=== PATIENT | female | born 1990 | race African-American/Black ===

== ENCOUNTER 2019-04-28 06:33 | Emergency (ER) | payer MEDICAID ==
[~2019-04-28] VITALS: Ht 175.3 cm; Wt 102.1 kg
--- NOTE | 2019-04-28 06:52 | NUR ---
ED Nurse Note: pt presents to ED c/o chills, RUFF, sore throat and cough x3 days. pt reports that the px is 10/10 and generalized throughout her body. she has had a cough that has made her now have a sore throat. pt states that white mucus comes up when she coughs and that it hurts to swallow. pt reports she has been around someone who is sick but is unsure whether or not they were postive for influenza. triage oral temp is 98.0. pt denies SOB, N/V at this time.
[2019-04-28 06:55] VITALS: BP 122/70
--- NOTE | 2019-04-28 07:00 | NUR ---
HAND-OFF: Report given to JERAD Sanabria.
--- NOTE | 2019-04-28 07:01 | NUR ---
ED Nurse Note: Received report from JERAD Wood. JOSH at bedside at this time.
--- NOTE | 2019-04-28 07:10 | Emergency Room Report ---
History of Present Illness General Chief Complaint: Flu Like Symptoms Source: Patient Present Illness HPI Patient presents with 3 days of upper respiratory symptoms. She has a runny nose, sore throat and a nonproductive cough. She denies wheezing. She has felt muscle and bone aches. Last night she took Motrin. No nausea, vomiting or diarrhea. The pain in her body is rated 10/10 at this time. She denies neck stiffness. She has had chills but no documented fever. Her last period was in January. She had a miscarriage in February. An IUD was placed at that time. She has had spotting. She does not believe she is at this time. She denies any dysuria. No chest pain, palpitations, abdominal pain, shortness of breath, rashes, visual changes, dizziness, headache. Allergies: Coded Allergies: No Known Allergies (Unverified , 04/28/19) Patient History Past Medical History: see triage record Social History: Reports: smoking Social History Narrative not working - with boyfriend Last Menstrual Period: 2 months ago Reviewed Nursing Documentation: PMH: Agreed; PSxH: Agreed Nursing Documentation-PMH Past Medical History: No Stated History Review of Systems All Other Systems: negative except mentioned in HPI Physical Exam Vital Signs Date Time Temp Pulse Resp B/P (MAP) Pulse Ox O2 Delivery O2 Flow Rate FiO2 04/28/19 06:43 98.1 111 16 122/70 (87) 98 Room Air Sp02 EP Interpretation: reviewed, normal General Appearance: well appearing, no apparent distress, GCS 15, non-toxic Head: normocephalic Eyes: bilateral eye normal inspection, bilateral eye PERRL, bilateral eye EOMI ENT: moist mucus membranes, pharyngeal erythema, other - Pierced tongue Neck: supple Respiratory: lungs clear, normal breath sounds Cardiovascular #1: regular rate, rhythm Gastrointestinal: normal inspection Genitourinary: no CVA tenderness Musculoskeletal: gait/station normal Neurologic: alert, oriented x3, grossly normal Psychiatric: mood/affect normal Skin: normal color, warm/dry Medical Decision Making Diagnostic Impression: Primary Impression: Influenza A ER Course Patient presents with 3 days of upper respiratory symptoms. [place] includes influenza, viral upper respiratory illness, strep amongst others. Based on the exam strep is less likely as there are no exudates. In addition her menstruation has been abnormal. Influenza swab will be obtained as well as urine and urine . The patient will be given a Sudafed and Tylenol. Swab positive for influenza A. Patient treated with Tamiflu. Discussed results with patient. Discussed treatment plan. Patient improved and stable for outpatient observation and treatment. Patient requested medication for cough. Prescription given. Microbiology Date/Time Source Procedure Growth Status 04/28/19 07:05 Nasal Nares - Final Complete 04/28/19 07:05 Nasal Nares - Final Complete Last Vital Signs Date Time Temp Pulse Resp B/P (MAP) Pulse Ox O2 Delivery O2 Flow Rate FiO2 04/28/19 08:32 98.1 98 18 125/72 98 Room Air Status: improved Disposition: HOME, SELF-CARE Condition: Improved Scripts Guaifenesin/Codeine Phos* (ROBITUSSIN AC*) 118 Ml Liquid 5 ML ORAL Q6H PRN for For Cough, #60 ML 0 Refills Prov: Joshua Lewis MD 04/28/19 Ibuprofen* (MOTRIN*) 600 Mg Tablet 600 MG ORAL Q6H PRN for For Pain, #16 TAB 0 Refills Prov: Joshua Lewis MD 04/28/19 Acetaminophen (Tylenol) 325 Mg Tablet 650 MG ORAL Q6H PRN for Prn Pain/Headache/Temp > 101, #20 TAB 0 Refills Prov: Joshua Lewis MD 04/28/19 Oseltamivir Phosphate (Tamiflu) 75 Mg Capsule 75 MG ORAL TWICE A DAY, #10 CAP Prov: Joshua Lewis MD 04/28/19 Joshua Lewis MD Apr 28, 2019 07:10
[2019-04-28] MEDS ORDERED: Pseudoephedrine 30mg tab ORAL ONE (07:15)
--- NOTE | 2019-04-28 07:15 | NUR ---
ED Nurse Note: Encouraged patient to urinate, patient states she had just used the restroom. Provided water. Will continue to monitor.
[2019-04-28 07:26] VITALS: BP 126/69
[2019-04-28] MEDS ORDERED: Oseltamivir 75mg cap ORAL STA (07:43)
[2019-04-28] MEDS ORDERED: TAMIFLU75 MG ORAL (07:45)
[2019-04-28] MEDS ORDERED: IBUPROFEN600 MG ORAL (07:51)
[2019-04-28] MEDS ORDERED: TYLENOL325 MG ORAL (07:51)
[2019-04-28] MEDS ORDERED: GUAIFENESIN-CO118 M1 ORAL (08:23)
--- NOTE | 2019-04-28 08:27 | NUR ---
ER DISCHARGE NOTE: Patient is cleared to be discharged per ERMD, pt is aox4, on room air, with stable vital signs. pt was given dc and prescription instructions, pt was able to verbalize understanding, pt id band removed without complications. pt is able to ambulate with steady gait. pt took all belongings.
[2019-04-28 08:32] VITALS: BP 125/72
== END 2019-04-28 08:27 | disposition home or self-care (01) ==
LOC: EMR 07:29
DX: J09.X2 Influenza due to identified novel influenza A virus with other respiratory manifestations (principal); Z97.5 Presence of (intrauterine) contraceptive device; F17.200 Nicotine dependence, unspecified, uncomplicated
CPT/HCPCS: 86710; Z7502; 99282